=== PATIENT | male | born 1960 | race Caucasian/White ===

== ENCOUNTER 2022-12-18 06:36 | Observation (INO) ==
[2022-12-18] MEDS ORDERED: Iodixanol (CONTRAST) 320 MG/ML 100 ML SDV IV ONE (07:26)
[2022-12-18 07:41] LABS: ABS Basophils 0.1 10^3/uL (0.0-0.1); ABS Eosinophils 0.2 10^3/uL (0.0-0.5); ABS Lymphocytes 1.4 10^3/uL (1.0-4.8); ABS Monocytes 0.7 10^3/uL (0.0-1.1); Eosinophil % 2.3 %; Hematocrit 43.3 % (38-53); Hemoglobin 15.1 g/dL (13.2-16.3); Lymphocyte % 19.2 %; Mean Corpuscular Hemoglobin 31.5 pg (27-33); Mean Corpuscular Hgb Conc 34.9 g/dL (31-36); Mean Corpuscular Volume 90.3 fL (80-97); Mean Platelet Volume 8.5 fL (7.5-11.2); Nucleated Red Blood Cells % 0.1 /100 WBC (0.0-0.4); Platelet Count 164 10^3/uL (150-450); Red Cell Distribution Width 12.9 % (12-17); White Blood Count 7.3 10^3/uL (3.6-10.2)
[2022-12-18 07:49] LABS: Activated Partial Thrombo Time 33.8 seconds (26.0-38.0); INR 1.04 (0.83-1.13)
[2022-12-18 07:58] LABS: Albumin/Globulin Ratio 1.7 (1-3); Calcium 8.5 mg/dL (8.6-10.3); Creatinine, Serum 0.97 mg/dL (0.67-1.17); Direct Bilirubin 0.1 mg/dL (0.03-0.18); Globulin 2.4 g/dL (2-4); HDL Cholesterol 47.8 mg/dL; Indirect Bilirubin 0.5 mg/dL (0.3-1.0); Potassium 3.9 mmol/L (3.5-5.0); Total Bilirubin 0.6 mg/dL (0.2-1.0); Total Protein 6.4 g/dL (6.4-8.9); eGFR CKD-EPI 87.2 (>60)
[2022-12-18 08:40] LABS: Urine Appearance Clear; Urine Bilirubin Negative (Negative); Urine Blood 1+ (Negative); Urine Color Straw; Urine Glucose Negative (Negative); Urine Ketones Negative (Negative); Urine Nitrite Negative (Negative); Urine Protein Negative (Negative); Urine Specific Gravity 1.057 (1.002-1.030); Urine Urobilinogen Negative (Negative)
[2022-12-18 09:18] LABS: Urine Bacteria Absent (Absent); Urine Red Blood Cell Trace(0-2/hpf) (Absent); Urine Squamous Epithelial Cell Present (Absent); Urine White Blood Cell Absent (Absent)
[2022-12-18] MEDS ORDERED: Polyethylene Glycol 3350 17 GM PACKET PO PRN (12:39)
[2022-12-18] MEDS ORDERED: Ondansetron 4 mg VIAL 2 MG/ML 2 ml VIAL IV PRN (12:39)
[2022-12-18] MEDS ORDERED: Senna TAB 8.6 mg TAB PO PRN (12:39)
[2022-12-18] MEDS: Heparin 5000 UNITS/ML 1 mL VIAL SUBCUT SCH (21:04)
[2022-12-19 09:08] LABS: ABS Basophils 0.1 10^3/uL (0.0-0.1); ABS Eosinophils 0.2 10^3/uL (0.0-0.5); ABS Lymphocytes 1.7 10^3/uL (1.0-4.8); ABS Monocytes 0.7 10^3/uL (0.0-1.1); ABS Neutrophils 5.1 10^3/uL (1.5-7.6); ABS Nucleated RBC 0.03 10^3/ul; Hematocrit 47.5 % (38-53); Hemoglobin 16.7 g/dL (13.2-16.3); Lymphocyte % 21.7 %; Mean Corpuscular Hemoglobin 31.5 pg (27-33); Mean Corpuscular Hgb Conc 35.1 g/dL (31-36); Mean Corpuscular Volume 89.7 fL (80-97); Mean Platelet Volume 8.7 fL (7.5-11.2); Nucleated Red Blood Cells % 0.4 /100 WBC (0.0-0.4); Platelet Count 171 10^3/uL (150-450); Red Cell Distribution Width 12.9 % (12-17); White Blood Count 7.7 10^3/uL (3.6-10.2)
[2022-12-19 09:22] LABS: Creatinine, Serum 0.88 mg/dL (0.67-1.17); Magnesium 2.1 mg/dL (1.9-2.7); Potassium 3.9 mmol/L (3.5-5.0)
[2022-12-19] MEDS: Heparin 5000 UNITS/ML 1 mL VIAL SUBCUT SCH (10:49)
[2022-12-19 18:12] VITALS: BP 163/88
== END 2022-12-19 18:10 | disposition home or self-care (01) ==
LOC: ED 06:36 → EDHOLD 06:36 → SUATTDRO 12:39 → EDHOLD 12-19 16:54
PROVIDERS: ADMIT Internal Medicine; ATTEND Hospitalist

== ENCOUNTER 2023-04-21 01:44 | Inpatient (IN) ==
[2023-04-21] MEDS ORDERED: Norepinephrine 4 MG/250mL D5W 4,000 MCG/250 ML BAG IV ONE (01:49)
[2023-04-21] MEDS ORDERED: Rocuronium 50 mg VIAL 10 mg/ml 5 ml VIAL (50 mg) ONE (01:50)
[2023-04-21] MEDS ORDERED: Succinylcholine 200 mg VIAL 20 mg/ml 10 ml VIAL (200 mg) ONE (01:51)
[2023-04-21] MEDS ORDERED: fentaNYL INFUSION 50 mcg/mL VL 2,500 MCG/50 ML VIAL IV SCH (02:05)
[2023-04-21] MEDS ORDERED: Propofol 10 mg/ml 100 ML BTL 1,000 MG/100 ML BTL ONE (02:15)
[2023-04-21] MEDS ORDERED: Etomidate 20 mg/10 ml 2 MG/ML 10 ml VIAL IV ONE (02:17)
[2023-04-21] MEDS ORDERED: Rocuronium 50 mg VIAL 10 mg/ml 5 ml VIAL (50 mg) IV ONE (02:17)
[2023-04-21 02:29] LABS: ABS Basophils 0.1 10^3/uL (0.0-0.1); ABS Eosinophils 0.1 10^3/uL (0.0-0.5); ABS Lymphocytes 2.7 10^3/uL (1.0-4.8); ABS Neutrophils 15.8 10^3/uL (1.5-7.6); ABS Nucleated RBC 0.03 10^3/ul; Eosinophil % 0.5 %; Hematocrit 44.3 % (38-53); Lymphocyte % 13.8 %; Mean Corpuscular Hemoglobin 30.9 pg (27-33); Mean Corpuscular Hgb Conc 33.9 g/dL (31-36); Mean Corpuscular Volume 91.1 fL (80-97); Mean Platelet Volume 9.6 fL (7.5-11.2); Nucleated Red Blood Cells % 0.2 %/100WBC (0.0-0.8); Platelet Count 229 10^3/uL (150-450); Red Blood Count 4.86 10^6/uL (4.06-5.63); Red Cell Distribution Width 12.9 % (12-17); White Blood Count 19.6 10^3/uL (3.6-10.2)
[2023-04-21 02:36] LABS: Activated Partial Thrombo Time 29.8 seconds (26.0-38.0); INR 1.08 (0.83-1.13)
[2023-04-21 02:49] LABS: Albumin 4.4 g/dL (3.2-5.2); Albumin/Globulin Ratio 1.8 (1-3); C Reactive Protein 3.76 mg/L (<8.01); Calcium 8.2 mg/dL (8.6-10.3); Creatinine, Serum 0.94 mg/dL (0.67-1.17); Globulin 2.5 g/dL (2-4); Total Bilirubin 0.5 mg/dL (0.2-1.0); Total Protein 6.9 g/dL (6.4-8.9)
[2023-04-21] MEDS: VASOPRESSIN IVPREMIX BTL 40 UNIT/100 ML BTL IV SCH ×2 (03:00→19:25)
[2023-04-21] MEDS ORDERED: Iohexol 350 (CONTRAST) 500 ML MDV IV ONE (03:11)
[2023-04-21] MEDS: Propofol 10 mg/ml 100 ML BTL 1,000 MG/100 ML BTL IV SCH ×4 (03:17→13:26)
[2023-04-21 03:21] LABS: Urine Appearance Clear; Urine Bilirubin Negative (Negative); Urine Blood 1+ (Negative); Urine Color Straw; Urine Glucose 3+(>=500 mg/dL) (Negative); Urine Ketones 1+ (Negative); Urine Nitrite Negative (Negative); Urine Protein 2+(100 mg/dL) (Negative); Urine Specific Gravity 1.007 (1.002-1.030); Urine Urobilinogen Negative (Negative)
[2023-04-21 03:35] LABS: Urine Bacteria Absent (Absent); Urine Red Blood Cell Trace(0-2/hpf) (Absent); Urine White Blood Cell Trace(0-5/hpf) (Absent)
[2023-04-21] MEDS ORDERED: Piperacillin/Tazobac 3.375 BAG 3.375 GM/100 ML BAG IV ONE (03:59)
[2023-04-21] MEDS ORDERED: Norepinephrine 4 MG/250mL D5W 4,000 MCG/250 ML BAG IV SCH (04:00)
[2023-04-21] MEDS ORDERED: Desmopressin Acetate 30 MCG in NS 0.9% 50 ML 50 ML IVPB ONE (04:01)
[2023-04-21 05:50] LABS: High Sensitivity Troponin 1 Hr 56 pg/mL (<20)
[2023-04-21 06:28] LABS: Magnesium 1.9 mg/dL (1.9-2.7)
[2023-04-21] MEDS: Norepinephrine 4 MG/250mL D5W 4,000 MCG/250 ML BAG IV SCH ×2 (06:56→08:18)
[2023-04-21] MEDS: Chlorhexidine MOUTHWASH 0.12% 15 ML UDC TOPICAL SCH ×5 (08:18→22:04)
[2023-04-21] MEDS: Norepinephrine *QUAD STRENGTH* 16 mg/250 mL NS (ICU ONLY) IV SCH ×2 (10:02→19:20)
[2023-04-21] MEDS ORDERED: Vancomycin per Pharmacy 1 EA NOTE FOLLOW UP PRN (11:16)
[2023-04-21] MEDS ORDERED: Zosyn per Pharmacy NOTE FOLLOW UP SCH (12:00)
[2023-04-21] MEDS ORDERED: Vancomycin 1,750 MG in NS 0.9% 500 ml BAG 500 ML IVPB ONE (12:00)
[2023-04-21 12:17] LABS: Resp Rate 16
[2023-04-21 12:19] LABS: PCO2 Arterial 50 mmHg (35-45); PO2 Arterial 149 mmHg (80-100)
[2023-04-21] MEDS ORDERED: ZOSYN 3.375 GM x ONE DOSE over 30 miuntes IV (12:30)
[2023-04-21] MEDS: Pantoprazole VIAL 40 MG VIAL IV SCH (12:31)
[2023-04-21] MEDS: KCL 20 MEQ/100 ML IVPREMIX 20 MEQ/100 ML BAG IV SCH ×3 (12:31→16:59)
[2023-04-21] MEDS ORDERED: Lactated Ringers 1000 ml BAG 1,000 ML IV ONE (12:56)
[2023-04-21] MEDS: ZOSYN 3.375 GM Q8H per EXTENDED INFUSION IV SCH (16:59)
[2023-04-22] MEDS: ZOSYN 3.375 GM Q8H per EXTENDED INFUSION IV SCH ×2 (00:39→08:20)
[2023-04-22 01:27] LABS: Urine Appearance Clear; Urine Bilirubin Negative (Negative); Urine Blood 1+ (Negative); Urine Color Straw; Urine Glucose 1+(50 mg/dL) (Negative); Urine Ketones Negative (Negative); Urine Nitrite Negative (Negative); Urine Protein Negative (Negative); Urine Specific Gravity 1.011 (1.002-1.030); Urine Urobilinogen Negative (Negative)
[2023-04-22 01:33] LABS: Urine Bacteria Absent (Absent); Urine Red Blood Cell Trace(0-2/hpf) (Absent); Urine White Blood Cell Absent (Absent)
[2023-04-22] MEDS: Chlorhexidine MOUTHWASH 0.12% 15 ML UDC TOPICAL SCH ×3 (02:12→10:22)
[2023-04-22 04:16] LABS: ABS Eosinophils 0.1 10^3/uL (0.0-0.5); ABS Lymphocytes 1.6 10^3/uL (1.0-4.8); ABS Monocytes 0.8 10^3/uL (0.0-1.1); ABS Neutrophils 11.3 10^3/uL (1.5-7.6); ABS Nucleated RBC 0.02 10^3/ul; Hematocrit 39.5 % (38-53); Hemoglobin 13.8 g/dL (13.2-16.3); Lymphocyte % 11.5 %; Mean Corpuscular Hemoglobin 30.8 pg (27-33); Mean Corpuscular Volume 88.1 fL (80-97); Mean Platelet Volume 9.4 fL (7.5-11.2); Nucleated Red Blood Cells % 0.1 %/100WBC (0.0-0.8); Platelet Count 146 10^3/uL (150-450); Red Blood Count 4.48 10^6/uL (4.06-5.63); Red Cell Distribution Width 12.9 % (12-17); White Blood Count 13.8 10^3/uL (3.6-10.2)
[2023-04-22 04:32] LABS: Calcium 8.2 mg/dL (8.6-10.3); Creatinine, Serum 0.76 mg/dL (0.67-1.17); Magnesium 1.5 mg/dL (1.9-2.7); Potassium 3.6 mmol/L (3.5-5.0); eGFR CKD-EPI 99.7 (>60)
[2023-04-22] MEDS ORDERED: Norepinephrine 16 MG/250mL NS 16,000 MCG/250 ML BAG IV SCH (04:40)
[2023-04-22] MEDS: Pantoprazole VIAL 40 MG VIAL IV SCH (08:20)
[2023-04-22] MEDS ORDERED: LORazepam 2 mg VIAL 1 ml IV PUSH PRN (11:57)
[2023-04-22] MEDS ORDERED: fentaNYL INFUSION 50 mcg/mL VL 2,500 MCG/50 ML VIAL IV SCH (11:57)
[2023-04-22] MEDS ORDERED: Lorazepam PYXIS KEY PRN (11:57)
[2023-04-22] MEDS ORDERED: Vancomycin 1,500 MG in NS 0.9% 250 ml 250 ML IVPB SCH (12:00)
[2023-04-22] MEDS ORDERED: fentaNYL 100 mcg/2 ml 50 MCG/ML VIAL IV SLOW PU PRN (13:52)
[2023-04-22 14:23] VITALS: BP 104/71
[2023-04-24] MEDS ORDERED: Vancomycin Trough Check NOTE FOLLOW UP ONE (11:30)
== END 2023-04-22 14:46 | disposition expired | DRG 44 ==
LOC: ED 01:44 → EDHOLD 05:45 → ICU 06:20
PROVIDERS: ADMIT Internal Medicine Pulmonary Disease; ATTEND Student in an Organized Health Care Education/Training Program